=== PATIENT | female | born 1990 | race Caucasian/White ===

== ENCOUNTER 2019-02-22 12:31 | Emergency (ER) | payer MEDICAID ==
[~2019-02-22] VITALS: Ht 172.7 cm; Wt 98.2 kg
[2019-02-22] MEDS ORDERED: dexamethasone sod phosphate 10mg/ml inj IM STA (13:39)
[2019-02-22] MEDS ORDERED: HYDROcodone/acetaminophen 5mg/325mg tablet PO ONE (13:40)
[2019-02-22] MEDS ORDERED: acetaminophen 325mg tablet PO ONE (14:00)
--- NOTE | 2019-02-22 14:00 | NUR ---
Spoke with patient about pain medication and the need to make arrangement for transportation if medicated pt refused norco. Dr Rivero ok gave a verbal order for 650 mg tylenol PO also clarified the decron im which can be given po per Dr Rivero
[2019-02-22] MEDS ORDERED: amoxicillin 250mg capsule PO ONE (14:20)
[2019-02-22] MEDS ORDERED: AMOX500C2 PO (14:21)
[2019-02-22 15:05] VITALS: BP 115/73
== END 2019-02-22 15:04 | disposition home or self-care (01) ==
LOC: ER 12:32
DX: J02.0 Streptococcal pharyngitis (principal); Z88.1 Allergy status to other antibiotic agents; Z79.2 Long term (current) use of antibiotics
CPT/HCPCS: 87880; 96372; 99283; J1100

== ENCOUNTER 2020-03-02 15:28 | Emergency (ER) | payer MEDICAID ==
[~2020-03-02] VITALS: Ht 157.5 cm; Wt 99.9 kg
[2020-03-02 15:48] VITALS: BP 128/70
--- NOTE | 2020-03-02 16:52 | NUR ---
discussed pt's pain w/ PA Suarez; new order for Toradol 15mg IM received.
[2020-03-02] MEDS ORDERED: ketorolac trometh. 30mg/ml inj. IV ONE (16:55)
== END 2020-03-02 17:05 | disposition home or self-care (01) ==
LOC: ER 15:29
DX: S93.602A Unspecified sprain of left foot, initial encounter (principal); M79.672 Pain in left foot; M25.572 Pain in left ankle and joints of left foot; Z88.1 Allergy status to other antibiotic agents; W22.8XXA Striking against or struck by other objects, initial encounter; Y93.89 Activity, other specified; Y92.89 Other specified places as the place of occurrence of the external cause; Y99.8 Other external cause status
CPT/HCPCS: 73630; 96374; 99283; J1885; 99284

== ENCOUNTER 2020-10-02 08:49 | Emergency (ER) | payer MEDICAID ==
[~2020-10-02] VITALS: Ht 157.5 cm; Wt 100.0 kg
[2020-10-02 09:44] LABS: BASOPHILS % (AUTO) 0.4 % (0-1); EOSINOPHILS % (AUTO) 0.1 % (0-6); HEMATOCRIT 39.6 % (35.0-45.0); HEMOGLOBIN 13.4 g/dl (12.0-16.0); LYMPHOCYTES # (AUTO) 1.4 X10'3 (1.1-4.8); LYMPHOCYTES % (AUTO) 14.1 % (21-51); MEAN CORPUSCULAR HEMOGLOBIN 30.9 PG (27.0-31.0); MEAN CORPUSCULAR HGB CONC 33.9 g/dL (33.0-36.5); MEAN CORPUSCULAR VOLUME 91.3 FL (78-98); MEAN PLATELET VOLUME 7.6 FL (7.4-10.4); MONOCYTES # (AUTO) 0.6 X10'3 (0-0.9); MONOCYTES % (AUTO) 6.5 % (2-12); NEUTROPHILS # (AUTO) 7.7 X10'3 (1.8-7.7); NEUTROPHILS % (AUTO) 78.9 % (42-75); PLATELET COUNT 258 X10'3 (140-440); RED BLOOD COUNT 4.33 X10'6 (4.20-5.60); RED CELL DISTRIBUTION WIDTH 12.6 % (11.5-14.5); WHITE BLOOD COUNT 9.7 X10'3 (4.5-11.0)
[2020-10-02 10:00] LABS: ALANINE AMINOTRANSFERASE 21 U/L (12-78); ALBUMIN 3.6 G/DL (3.4-5.0); ALBUMIN/GLOBULIN RATIO 0.9 (1.1-1.5); ALKALINE PHOSPHATASE 48 IU/L (46-116); ANION GAP 9 (8-16); ASPARTATE AMINO TRANSFERASE 17 U/L (10-37); BILIRUBIN,TOTAL 0.6 MG/DL (0.1-1.0); BLOOD UREA NITROGEN 8 MG/DL (7-18); BUN/CREATININE RATIO 7.7 (6.6-38.0); CHLORIDE 101 MMOL/L (99-107); CREATININE 1.04 MG/DL (0.40-0.90); GLUCOSE 89 MG/DL (70-104); LIPASE 86 U/L (73-393); POTASSIUM 3.5 MMOL/L (3.5-5.1); SODIUM 138 MMOL/L (135-145); TOTAL CARBON DIOXIDE 27.9 MMOL/L (24-32); TOTAL PROTEIN 7.7 G/DL (6.4-8.2); eGFR 63 ML/MIN
[2020-10-02 10:34] LABS: CLARITY,URINE CLOUDY (Clear); COLOR,URINE YELLOW (Yellow); GLUCOSE, URINE NEGATIVE (Neg); KETONES,URINE TRACE mg/dl (Neg); LEUKOCYTE ESTERASE ,URINE MODERATE (Neg); NITRITES, URINE NEGATIVE (Neg); OCCULT BLOOD,URINE MODERATE (Neg); PROTEIN,URINE 100 mg/dl (Neg); UROBILINOGEN,URINE 0.2 E.U/dL (0.2-1.0)
[2020-10-02 10:35] LABS: UA COLLECTION TYPE CLN CATCH MIDSTREAM
[2020-10-02 10:38] LABS: URINE HCG NEGATIVE (NEG)
[2020-10-02 10:45] LABS: BACTERIA,URINE 2+ /HPF (Neg); SQUAMOUS EPITHELIAL CELL,UR MANY /LPF (FEW); WBC CLUMPS,URINE MANY /HPF (NEGATIVE); WBC,URINE TNTC /HPF (0-4)
[2020-10-02] MEDS ORDERED: CEFI400C PO (12:39)
[2020-10-02] MEDS ORDERED: ONDA4TAB6 PO (12:39)
[2020-10-02] MEDS: ondansetron 4mg rapidly disintigrating tab PO ONE (13:02)
[2020-10-02 13:09] VITALS: BP 142/80
== END 2020-10-02 13:05 | disposition home or self-care (01) ==
LOC: ER 08:49
DX: N10 Acute pyelonephritis (principal); R10.31 Right lower quadrant pain; R30.9 Painful micturition, unspecified; R11.0 Nausea; Z88.1 Allergy status to other antibiotic agents; Z79.2 Long term (current) use of antibiotics; Z79.899 Other long term (current) drug therapy
CPT/HCPCS: 36415; 80053; 81001; 81025; 83690; 85025; 99283

== ENCOUNTER 2020-12-22 10:44 | Emergency (ER) | payer MEDICAID ==
[~2020-12-22] VITALS: Ht 157.5 cm; Wt 100.0 kg
[~2020-12-22 10:44] MED LIST: CEFI400C PO; ONDA4TAB6 PO
[2020-12-22 11:06] VITALS: BP 126/84
[2020-12-22] MEDS ORDERED: ACYC5CRE2 TP (11:11)
[2020-12-22] MEDS ORDERED: ACYC-202 PO (11:11)
[2020-12-22] MEDS ORDERED: DIPH-423 PO (11:11)
--- NOTE | 2020-12-22 11:50 | NUR ---
Patient seen and assessed by provider.
== END 2020-12-22 11:50 | disposition home or self-care (01) ==
LOC: ER 10:44
DX: B00.1 Herpesviral vesicular dermatitis (principal); R59.0 Localized enlarged lymph nodes; Z88.1 Allergy status to other antibiotic agents; Z79.2 Long term (current) use of antibiotics; Z79.899 Other long term (current) drug therapy; Z86.19 Personal history of other infectious and parasitic diseases
CPT/HCPCS: 99283

== ENCOUNTER 2021-01-09 08:12 | Emergency (ER) | payer MEDICAID ==
[~2021-01-09] VITALS: Ht 157.5 cm; Wt 105.2 kg
[~2021-01-09 08:12] MED LIST changes: +DIPH-423 PO
[2021-01-09] MEDS ORDERED: ketorolac tromethamine 15mg/ml inj. IM ONE (09:50)
[2021-01-09] MEDS ORDERED: ondansetron 4mg rapidly disintigrating tab PO STA (11:22)
--- NOTE | 2021-01-09 12:41 | NUR ---
PATIENT RETURNED FROM CT SCAN, NOT INFORMED BY IVORY POLISHER THAT PATIENT LEFT OR RETURNED
--- NOTE | 2021-01-09 12:55 | NUR ---
PA AWARE UA NOT OBTAINED PRIOR TO CT SCAN
[2021-01-09 13:37] VITALS: BP 120/78
[2021-01-09] MEDS ORDERED: HYDR-3965 PO (13:40)
[2021-01-09 15:05] LABS: URINE HCG NEGATIVE (NEG)
== END 2021-01-09 14:39 | disposition home or self-care (01) ==
LOC: ER 08:12
DX: S80.11XA Contusion of right lower leg, initial encounter (principal); R10.84 Generalized abdominal pain; M25.551 Pain in right hip; M79.604 Pain in right leg; Z88.1 Allergy status to other antibiotic agents; Z79.2 Long term (current) use of antibiotics; Z79.899 Other long term (current) drug therapy; V86.99XA Unspecified occupant of other special all-terrain or other off-road motor vehicle injured in nontraffic accident, initial encounter; Y93.89 Activity, other specified; Y92.89 Other specified places as the place of occurrence of the external cause; Y99.8 Other external cause status
CPT/HCPCS: 72100; 72131; 73502; 73564; 73610; 81025; 93971; 96372; 99285; J1885

== ENCOUNTER 2021-06-22 16:58 | Emergency (ER) | payer MEDICAID ==
[~2021-06-22] VITALS: Ht 165.1 cm; Wt 100.0 kg
[2021-06-22 18:35] VITALS: BP 154/104
[2021-06-22] MEDS ORDERED: LIDOcaine Viscous 15ml cup MM ONE (18:40)
[2021-06-22] MEDS ORDERED: mag hydrox/Alum hydrox/simeth 30ml oral suspension PO ONE (18:40)
[2021-06-22] MEDS ORDERED: sucralfate 1 gm tablet PO ONE (18:40)
--- NOTE | 2021-06-22 19:08 | NUR ---
medicated patient as ordered . Pt denies any discomfort at this time . plan of care updated , pt awaits chest x ray at this time .
[2021-06-22] MEDS ORDERED: PANT-47 PO (19:20)
--- NOTE | 2021-06-22 19:26 | NUR ---
PT SEEN TREAYED AND DISCHARGED BY ARELIS SUNG.
== END 2021-06-22 19:28 | disposition home or self-care (01) ==
LOC: ER 16:59
DX: R10.13 Epigastric pain (principal); R07.89 Other chest pain; R13.10 Dysphagia, unspecified; R11.0 Nausea; Z88.1 Allergy status to other antibiotic agents; Z79.2 Long term (current) use of antibiotics; Z79.899 Other long term (current) drug therapy
CPT/HCPCS: 71045; 93005; 99283

== ENCOUNTER 2021-09-18 07:56 | Emergency (ER) | payer MEDICAID ==
[~2021-09-18] VITALS: Ht 157.5 cm; Wt 104.5 kg
[~2021-09-18 07:56] MED LIST changes: +PANT-47 PO
[2021-09-18 08:35] VITALS: BP 131/96
[2021-09-18] MEDS ORDERED: CODE120S2 PO (17:03)
== END 2021-09-18 17:29 | disposition home or self-care (01) ==
LOC: ER 07:57
DX: J20.9 Acute bronchitis, unspecified (principal); R19.7 Diarrhea, unspecified; R11.2 Nausea with vomiting, unspecified; R07.89 Other chest pain; R06.02 Shortness of breath; Z87.440 Personal history of urinary (tract) infections; Z88.1 Allergy status to other antibiotic agents; Z79.2 Long term (current) use of antibiotics; Z79.899 Other long term (current) drug therapy
CPT/HCPCS: 71046; 93005; 99283

== ENCOUNTER 2023-03-28 09:42 | Emergency (ER) | payer MEDICAID ==
[~2023-03-28] VITALS: Ht 157.5 cm; Wt 104.6 kg
[2023-03-28 09:43] VITALS: BP 138/93
[2023-03-28] MEDS ORDERED: CEPH250T PO (10:30)
== END 2023-03-28 10:46 | disposition home or self-care (01) ==
LOC: ER 09:42
DX: S70.362A Insect bite (nonvenomous), left thigh, initial encounter (principal); L03.116 Cellulitis of left lower limb; Z87.440 Personal history of urinary (tract) infections; Z88.1 Allergy status to other antibiotic agents; Z79.2 Long term (current) use of antibiotics; Z79.899 Other long term (current) drug therapy; W57.XXXA Bitten or stung by nonvenomous insect and other nonvenomous arthropods, initial encounter; Y93.89 Activity, other specified; Y92.89 Other specified places as the place of occurrence of the external cause; Y99.8 Other external cause status
CPT/HCPCS: 99283

== ENCOUNTER → 2024-02-09 | Outpatient (CLI) | payer MEDICAID | END | disposition home or self-care (01) | LOC: RAD 11:14 | PROVIDERS: ATTEND Surgery | DX: M25.512 Pain in left shoulder (principal) | CPT/HCPCS: 73030 ==

== ENCOUNTER 2024-11-28 18:01 | Emergency (ER) | payer MEDICAID ==
[~2024-11-28] VITALS: Ht 167.6 cm; Wt 66.5 kg
[2024-11-28 18:37] VITALS: BP 117/70; PULSE 93; RESP 15; O2SAT 95
[2024-11-28] MEDS: acetaminophen 325mg tablet PO ONE ×2 (19:52→20:00)
[2024-11-28] MEDS: ibuprofen tablet 400 MG TABLET PO ONE (20:00)
[2024-11-28] MEDS ORDERED: IBUP-1986 PO (20:49)
[2024-11-28] MEDS ORDERED: ACET-1025 PO (20:49)
[2024-11-28 20:51] VITALS: TEMP 98.6
== END 2024-11-28 21:00 | disposition home or self-care (01) ==
LOC: ER 18:02
DX: S60.221A Contusion of right hand, initial encounter (principal); Z88.1 Allergy status to other antibiotic agents; W23.0XXA Caught, crushed, jammed, or pinched between moving objects, initial encounter; Y93.89 Activity, other specified; Y92.89 Other specified places as the place of occurrence of the external cause; Y99.8 Other external cause status
CPT/HCPCS: 29125; 73100; 73110; 73130; 99284; A4565

== ENCOUNTER 2025-05-06 18:44 | Emergency (ER) | payer MEDICAID ==
[~2025-05-06] VITALS: Ht 157.5 cm; Wt 71.8 kg
[~2025-05-06 18:44] MED LIST changes: +IBUP-1986 PO
[2025-05-06 19:04] VITALS: BP 116/74; PULSE 110; RESP 16; TEMP 98.4; O2SAT 99
[2025-05-06 20:36] LABS: URINE HCG NEGATIVE (NEG)
[2025-05-06 21:01] LABS: LEUKOCYTE ESTERASE ,URINE SMALL (Neg); NITRITES, URINE POSITIVE (Neg); OCCULT BLOOD,URINE TRACE-INTACT (Neg)
[2025-05-06 21:06] LABS: UA COLLECTION TYPE CLN CATCH MIDSTREAM
[2025-05-06 21:13] LABS: SQUAMOUS EPITHELIAL CELL,UR FEW /LPF (FEW)
[2025-05-06 21:14] LABS: WBC CLUMPS,URINE MODERATE /HPF (NEGATIVE)
== END 2025-05-07 00:26 | disposition left against medical advice (07) ==
LOC: ER 18:44
DX: R10.9 Unspecified abdominal pain (principal); Z88.8 Allergy status to other drugs, medicaments and biological substances; Z53.21 Procedure and treatment not carried out due to patient leaving prior to being seen by health care provider
CPT/HCPCS: 81001; 81025; 87077; 87088; 87186